=== PATIENT | female | born 1995 | race Two or more races ===

== ENCOUNTER → 2019-11-21 | Emergency (ER) | payer MEDICAID ==
[~2019-11-21] VITALS: Ht 154.9 cm; Wt 77.6 kg
[2019-11-21 22:26] LABS: Urine Bacteria FEW /hpf (None Seen); Urine Blood Negative /uL (Negative); Urine Specific Gravity 1.003 (1.001-1.035); Urine WBC 19 /hpf (0 - 5)
[2019-11-21 23:30] VITALS: BP 111/67
== END | disposition home or self-care (01) ==
LOC: EDBD 21:11 → ER 21:23
DX: O26.893 Other specified pregnancy related conditions, third trimester (principal); R10.33 Periumbilical pain; Z3A.28 28 weeks gestation of pregnancy; V49.9XXA Car occupant (driver) (passenger) injured in unspecified traffic accident, initial encounter; Y93.89 Activity, other specified; Y92.89 Other specified places as the place of occurrence of the external cause; Y99.8 Other external cause status
CPT/HCPCS: 76805; 81001